=== PATIENT | female | born 1985 | race Caucasian/White ===

== ENCOUNTER 2017-04-13 03:17 | Emergency (ER) | payer OTHER ==
[2017-04-13] MEDS ORDERED: Lidocaine 1% 10 ML MDV INJECT ONE (03:34)
[2017-04-13] MEDS ORDERED: Diphtheria,Pertussis(Acell),Tetanus Vaccine 0.5 ML SDV IM ONE (03:34)
--- NOTE | 2017-04-13 04:12 | EDM.PDOC ---
ED HPI GENERAL MEDICAL PROBLEM - General Chief Complaint: Laceration Stated Complaint: INJURED FINGER ON THE JOB Time Seen by Provider: 04/13/17 03:34 - History of Present Illness INITIAL COMMENTS - FREE TEXT/NARRATIVE: 31-year-old female presents emergency room with a right middle finger laceration. This occurred shortly before arrival patient was at work she stuck her hand into a drain and there was a broken glass. She cut the tip of her finger. No other associated injuries with this mishap. She is uncertain of her last tetanus shot. Patient does have some numbness of the tip of her finger. - Related Data Allergies Allergy/AdvReac Type Severity Reaction Status Date / Time No Known Allergies Allergy Verified 04/13/17 03:25 Home Meds: Home Meds . [No Known Home Meds] 04/13/17 [History] Past Medical History HEENT History: Reports: Impaired Vision Other HEENT History: Wears glasses - Past Surgical History HEENT Surgical History: Reports: Oral Surgery GI Surgical History: Reports: Cholecystectomy Female Surgical History: Reports: Tubal Ligation Endocrine Surgical History: Reports: Parathyroidectomy Social & Family History - Tobacco Use Smoking Status *Q: Current Every Day Smoker Years of Tobacco use: 20 Packs/Tins Daily: 0.1 - Recreational Drug Use Recreational Drug Use: Yes Drug Use in Last 12 Months: Yes Recreational Drug Type: Reports: Marijuana/Hashish, Methamphetamine Recreational Drug Use Frequency: Not Used In Over 6 Months ED ROS GENERAL - Review of Systems Review Of Systems: See Below Constitutional: Reports: No Symptoms Respiratory: Reports: No Symptoms Cardiovascular: Reports: No Symptoms GI/Abdominal: Reports: No Symptoms ED EXAM, SKIN/RASH Exam: See Below Exam Limited By: No Limitations General Appearance: Alert, No Apparent Distress Respiratory/Chest: No Respiratory Distress, Lungs Clear, Normal Breath Sounds Cardiovascular: Regular Rate, Rhythm, No Edema, No Murmur Extremities: Other (Examination of her right hand shows a distal middle finger palmar curvilinear laceration. Indeed the patient has numbness distal to this as it courses up to the nail plate and she has numbness along the medial lateral side of the nail plate at the base of the nail plate sensation returns.) ED SKIN PROCEDURES - Laceration/Wound Repair Right Finger Lac/Wound length In cm: 1.5 Appearance: Clean, Other (Slight curvilinear following the contour of the distal finger) Distal NVT: Other (She has some palmar numbness distal and this extends up along the medial lateral aspects the nail plate sensation returns at the base the nail plate) Anesthetic Type: Digital Local Anesthesia - Lidocaine (Xylocaine): 1% Plain Local Anesthetic Volume: Other (Initial injection was not adequate an additional 1 mL of lidocaine was placed to each side of the proximal digit mostly to the palmar nerves. After couple minutes satisfactory anesthesia was achieved) Closed with: Sutures Suture Size: 4-0 # of Sutures: 6 Suture Type: Nylon, Interrupted, Simple Tetanus Status Addressed: Yes Complications: (Tetanus was updated) Course - Vital Signs Last Recorded V/S: Last Vital Signs Temp 35.9 C 04/13/17 03:25 Pulse 82 04/13/17 03:25 Resp 16 04/13/17 03:25 BP 121/72 04/13/17 03:25 Pulse Ox 99 04/13/17 03:25 Departure - Departure Time of Disposition: 04:20 Disposition: Home, Self-Care 01 Clinical Impression: Finger laceration - Discharge Information Additional Instructions: Return to the emergency room with any questions problems or other concerns. Return with any signs of infection. Sutures should be removed in 10-12 days. Follow-up in the Hospital clinic to have this done. [phone] Keep the laceration site absolutely clean and dry for the next 24 hours. After 24 hours he can let a little bit of water run over the area then gently dab dry do not soak the finger in water at any time while the stitches are in place. After 5 or 6 days you can use a little more water but be very careful with this. Keep the lacerations site covered for the next 6 or 7 days and then as needed.
== END 2017-04-13 04:36 | disposition home or self-care (01) ==
LOC: JD.ED 03:17
DX: S61.212A Laceration without foreign body of right middle finger without damage to nail, initial encounter (principal); W22.8XXA Striking against or struck by other objects, initial encounter; Y99.0 Civilian activity done for income or pay; F17.210 Nicotine dependence, cigarettes, uncomplicated
CPT/HCPCS: 12001; 90715; 99282-25; 99283-25